=== PATIENT | female | born 1975 | race Caucasian/White ===

== ENCOUNTER → 2020-01-16 13:31 | Outpatient (CLI) | payer OTHER, SELFPAY ==
--- NOTE | ~2020-01-16 | MM_ITS ---
EXAMINATION: MM screening [facility] BI w eugenia HISTORY: Screening mammogram TECHNIQUE: Craniocaudal and mediolateral oblique 3-D tomosynthesis images were obtained and synthetic 2-D images were generated. CAD analysis was submitted and interpreted. COMPARISON: 08/06/2018, 06/16/2017, 03/16/2016, 01/13/2015 BREAST PARENCHYMAL COMPOSITION: The breasts are heterogeneously dense, which may obscure small masses . FINDINGS: There is no evidence of suspicious mass, calcification, or architectural distortion to sugg est malignancy in either breast. There has been no suspicious interval change. IMPRESSION: 1. No mammographic evidence of malignancy. 2. Recommend routine screening mammography in one year. BI-RADS Category 1: Negative Reviewed, dictated and finalized at location A.
== END ==
PROVIDERS: PCP Nurse Practitioner Family; Visit Provider Nurse Practitioner Obstetrics & Gynecology
DX: Z12.31 Encounter for screening mammogram for malignant neoplasm of breast (principal)
CPT/HCPCS: 77063; 77067

== ENCOUNTER → 2021-04-08 15:50 | Outpatient (CLI) | payer OTHER, SELFPAY ==
--- NOTE | ~2021-04-08 | MM_ITS ---
EXAMINATION: MM screening [facility] BI w eugenia HISTORY: Screening mammogram TECHNIQUE: Craniocaudal and mediolateral oblique 3-D tomosynthesis images were obtained and synthetic 2-D images were generated. CAD analysis was submitted and interpreted. COMPARISON: 01/16/2020 08/08/2018 BREAST PARENCHYMAL COMPOSITION: The breasts are heterogeneously dense, which may obscure small masses . FINDINGS: There is no evidence of suspicious mass, calcification, or architectural distortion to sugg est malignancy in either breast. There has been no suspicious interval change. IMPRESSION: 1. No mammographic evidence of malignancy. 2. Recommend routine screening mammography in one year. BI-RADS Category 1: Negative Reviewed, dictated and finalized at location A. [employer]
== END ==
PROVIDERS: Visit Provider Nurse Practitioner Obstetrics & Gynecology
DX: Z12.31 Encounter for screening mammogram for malignant neoplasm of breast (principal)
CPT/HCPCS: 77063; 77067

== ENCOUNTER 2021-12-06 01:12 | Day surgery (SDC) | payer OTHER, SELFPAY ==
[2021-11-24 13:39] VITALS: BMI 21.7
[2021-12-06 11:02] VITALS: BP 116/70; PULSE 80; RESP 18; TEMP 36.7; O2SAT 99
[2021-12-06] MEDS: LACTATED RINGERS 1,000 ML 150 ML IV CONT (11:05)
--- NOTE | 2021-12-06 11:12 | P.HP_ITS ---
H&P: HPI History of Present Illness Date/Time: 12/06/21 11:12 Chief Complaint: Positive Cologuard test Narrative: this is a 46-year-old white female patient presents for colonoscopy because of a positive screening Cologuard test. Patient's current weight appetite and bowel movements are normal. Patient denies abdominal pain. She has had no bleeding. Family history is noncontributory. Patient presents today for screening colonoscopy. Review of Systems Review of Systems: Review of systems noncontributory. [facility] Social History Social History Smoking status: Never smoker Alcohol intake: current Alcohol use details: occasionally Substance use type: does not use Living arrangements: with family Spiritual care concerns: No Meds Home Medications and Allergies Home Medications Medication Instructions Recorded Confirmed Type inulin 2.5 gram chewable tablet 2.5 g PO DAILY 11/24/21 11/24/21 History multivitamin with minerals-folic 1 tablet PO DAILY 11/24/21 11/24/21 History acid 0.4 mg tablet norgestimate 0.25 mg-ethinyl 1 tablet PO DAILY 11/24/21 11/24/21 History estradiol 35 mcg tablet (Layne) Allergies Allergy/AdvReac Type Severity Reaction Status Date / Time Penicillins Allergy Unknown Other Verified 12/06/21 11:00 Vital Signs Vital Signs - 24 hr 12/06/21 11:02 Temperature 98.1 F Pulse Rate 80 Respiratory Rate 18 Blood Pressure 116/70 Pulse Oximetry 99 Oxygen Delivery Room Air Exam Narrative: Physical exam reveals patient to be alert. Vital signs stable. HEENT exam is unremarkable. Patient is anicteric. Lungs are clear to auscultation and percussion. Heart is without murmur or extra sounds. Abdominal exam bowel sounds are present soft nontender with no organomegaly. Digital external rectal exam is normal. Assessment and Plan Assessment and plan (1) Positive colorectal cancer screening using Cologuard test: Code(s): R19.5 - Other fecal abnormalities Status: Acute Assessment and Plan: Patient found to have positive Cologuard test. Plan is for screening colonoscopy today because of this being positive.
--- NOTE | 2021-12-06 11:19 | WPDANESEPPF ---
Anes - Initial Pre Proc Eval Procedure: Operation Date: 12/06/21 11:30 Proposed Procedures p Colonoscopy - Grover Hernandez MD Date/Time: 12/06/21 11:19 Surgeon: Grover Hernandez MD Pre Op Diagnosis: positive cologaurd Patient Data Age: 46 Gender: F Height: 1.68 m Weight: 60.1 kg Last Vital Signs Temp 98.1 F 12/06/21 11:02 Pulse 80 12/06/21 11:02 Resp 18 12/06/21 11:02 BP 116/70 12/06/21 11:02 Pulse Ox 99 12/06/21 11:02 O2 Del Method Room Air 12/06/21 11:02 Allergies Allergy/AdvReac Type Severity Reaction Status Date / Time Penicillins Allergy Unknown Other Verified 12/06/21 11:00 Home Medications Medication Instructions Recorded Confirmed Type inulin 2.5 gram chewable tablet 2.5 g PO DAILY 11/24/21 11/24/21 History multivitamin with minerals-folic 1 tablet PO DAILY 11/24/21 11/24/21 History acid 0.4 mg tablet norgestimate 0.25 mg-ethinyl 1 tablet PO DAILY 11/24/21 11/24/21 History estradiol 35 mcg tablet (Layne) Patient hx anesthesia problems: none Family hx anesthesia problems: none Results Review: All pre-operative results and documents have been reviewed as part of the pre-operative evaluation. [facility] Social History Social History Smoking status: Never smoker Alcohol intake: current Alcohol use details: occasionally Substance use type: does not use Living arrangements: with family Spiritual care concerns: No Anes - Eval Final PreProcedure Day of Procedure 12/06/21 11:19 Patient weight: normal Heart: regular rate and rhythm Lungs: clear to auscultation Airway: Mallampati scale class II Neurological: alert and oriented Last oral intake: >/= 8 hours ASA classification: I Emergent: no Anesthetic plan: proceed Anesthesia type and monitoring: general GIVS and standard monitoring Results Review: All pre-operative results and documents have been reviewed as part of the pre-operative evaluation. Informed Consent: The patient's anesthetic plan and its attendant risks and benefits were discussed with the patient/family/POA. Questions were solicited and answers provided to the satisfaction of the patient/family/POA.
[2021-12-06 11:59] VITALS: BP 88/48; PULSE 62; RESP 17; O2SAT 99
[2021-12-06 12:09] VITALS: BP 96/56; PULSE 70; RESP 17; O2SAT 99
[2021-12-06 12:17] VITALS: BP 109/69; PULSE 73; RESP 17; O2SAT 99
== END 2021-12-06 12:30 | disposition home or self-care (01) ==
PROVIDERS: PCP Nurse Practitioner Obstetrics & Gynecology; Visit Provider Internal Medicine Gastroenterology
PROC: 0DJD8ZZ Inspection of Lower Intestinal Tract, Via Natural or Artificial Opening Endoscopic (ICD-10-PCS; CPT 45378; principal; 2021-12-06 11:30)
DX: R19.5 Other fecal abnormalities (principal); K64.8 Other hemorrhoids
CPT/HCPCS: 45378; J2704; J7120

== ENCOUNTER 2022-10-10 17:02 | Emergency (ER) | payer OTHER, SELFPAY ==
--- NOTE | 2022-10-10 17:07 | ED.EXTPRO ---
HPI - Extremity Problem General Chief complaint: Extremity Problem,Nontraumatic Stated complaint: top of left foot Time Seen by Provider: 10/10/22 17:09 Source: patient and RN notes reviewed Mode of arrival: ambulatory Limitations: no limitations History of Present Illness HPI Narrative: 47-year-old female presents with concern for pain to the top of her left foot. She denies injury. She reports symptoms started on Monday without injury or trauma. She reports it is tender to touch. She denies redness, warmth, bruising. She reports she has been taking ibuprofen occasionally that helps MD Complaint: extremity pain Related Data Home Medications Medication Instructions Recorded Confirmed inulin 2.5 gram chewable tablet 2.5 g PO DAILY 11/24/21 11/24/21 multivitamin with minerals-folic 1 tablet PO DAILY 11/24/21 11/24/21 acid 0.4 mg tablet norgestimate 0.25 mg-ethinyl 1 tablet PO DAILY 11/24/21 11/24/21 estradiol 35 mcg tablet (Layne) Allergies Allergy/AdvReac Type Severity Reaction Status Date / Time Penicillins Allergy Unknown Other Verified 12/06/21 11:00 Review of Systems Review of Systems: CONSTITUTIONAL: Denies malaise, chills, sweats, or fever. CARDIOVASCULAR: Denies chest pain, palpitations, or edema. RESPIRATORY: Denies cough or dyspnea. SKIN: Denies rash or itching, bruising, redness, swelling. MUSCULOSKELETAL: Reports left dorsal foot pain NEUROLOGIC: Denies numbness, weakness All systems reviewed & are unremarkable except as noted in HPI and below PMFSH Social History Social History Smoking status: Never smoker Alcohol intake: current Alcohol use details: occasionally Substance use type: does not use Living arrangements: with family Spiritual care concerns: No Comments At time of signature, agree with nursing past medical, surgical, social and family history. There is no relevant family history pertinent to the presenting complaint Exam Narrative: GENERAL: Well-appearing, well-nourished, and in no acute distress. HEAD: Normocephalic, atraumatic. EYES: PERRLA, conjunctivae clear NECK: Supple. CHEST: Speaks in full sentences. No respiratory distress. HEART: Regular rate and rhythm. Normal and equal peripheral pulses. EXTREMITIES: Left foot has normal strength and sensation, normal range of motion. No ecchymosis. Small raised tender area on the dorsal left foot without erythema, warmth, induration, open skin. 5/5 strength with ankle in digit flexion and extension. Normal sensation with sensitivity to light touch and pain. No open wounds, no skin tenting, no devitalized tissue or atrophy, no trophic changes, no obvious deformity, alignment normal, nearby joints and structures intact. Distal pulses palpable and equal bilaterally, skin warm, dry, pink. Capillary refill less than 3 seconds. SKIN: Warm, dry, no rash. NEURO: Alert and oriented x3. PSYCH: Normal mood and affect Course Course Emergency Course: Patient is aware of diagnosis, understands and agrees to treatment plan. Anticipatory guidance given. Patient agrees to follow-up as directed and is aware of reasons to seek care at the emergency department. Portions of this record may have been created with voice recognition software Level of Care: Express Care Visit Vital Signs Vital signs: Reviewed. Critical Care Time Critical Care Time Critical Care Time: No Discharge Plan Discharge Clinical Impression: Tendinitis of left foot Patient Disposition: Home, Self-Care Condition: Stable Instructions: Tendinitis (ED) Additional Instructions: Avoid activities that cause pain until the pain subsides. Ice to the area 20-30 minutes 4-6 times a day Elastic wrap/orthopedic shoe as directed for comfort for the next 5-7 days Tylenol for lesser pain Ibuprofen regularly for the next 2-3 days for the inflammation Follow up with your primary care provider if the condition is not improving within 1 week. If
[2022-10-10 17:11] VITALS: BP 113/71; PULSE 78; RESP 16; TEMP 36.8; O2SAT 100
== END 2022-10-10 17:26 | disposition home or self-care (01) ==
PROVIDERS: Emergency Provider Nurse Practitioner; PCP Nurse Practitioner Family
DX: M77.8 Other enthesopathies, not elsewhere classified (principal)
CPT/HCPCS: 99212; G0463

== ENCOUNTER 2023-11-02 14:35 | Emergency (ER) | payer OTHER, SELFPAY ==
[2023-11-02 14:46] VITALS: BP 120/86; PULSE 77; RESP 16; TEMP 36.9; O2SAT 100
--- NOTE | 2023-11-02 15:52 | ED.FEMALEGU ---
HPI - Female Genitourinary General Chief complaint: Urogenital-Female Stated complaint: Urinary Problem Time Seen by Provider: 11/02/23 15:20 Source: patient, RN notes reviewed and old records reviewed Mode of arrival: ambulatory Limitations: no limitations History of Present Illness HPI Narrative: 48 year old female who presents to express care with UTI symptoms since Monday, suprapubic pressure, burning at end of stream of urine, frequency, and decreased volume. Patient reports that she has noted some blood in the urine, denies any CV tenderness. Patient reports no concern for STD exposure, denies any vaginal discharge or any itching. Patient reports no fevers, chills, or sweats, denies any fevers, nausea or vomiting or diarrhea. MD elicited complaint: UTI Onset (ago): day(s) (3-4 days) Location of symptoms: suprapubic and urethra Severity scale (1-10): 4 Quality of pain: burning and aching Vaginal discharge: none Vaginal bleeding: none Treatment prior to arrival: other (increased oral fluids of water) Related Data Home Medications Medication Instructions Recorded Confirmed multivitamin with minerals-folic 1 tablet PO DAILY 11/24/21 11/02/23 acid 0.4 mg tablet norgestimate 0.25 mg-ethinyl 1 tablet PO DAILY 11/24/21 11/02/23 estradiol 35 mcg tablet (Layne) Allergies Allergy/AdvReac Type Severity Reaction Status Date / Time Penicillins Allergy Mild Rash Verified 11/02/23 15:11 Review of Systems Review of Systems: CONSTITUTIONAL: Denies fever, chills, or sweats. CARDIOVASCULAR: Denies chest pain, palpitations, or edema. RESPIRATORY: Denies cough or dyspnea. GASTROINTESTINAL:reports suprapubic abdominal pain,no nausea, vomiting, or diarrhea. GENITOURINARY: Reports dysuria, frequency, urgency. Denies flank pain positive for visible hematuria. SKIN: Denies rash or itching. MUSCULOSKELETAL: Denies back pain or myalgia. Denies CVA tenderness NEUROLOGIC: Denies headache All systems reviewed & are unremarkable except as noted in HPI and below PMFSH Social History Social History Smoking status: Never smoker Alcohol intake: current Alcohol use details: occasionally Substance use type: does not use Living arrangements: with family Spiritual care concerns: No Comments At time of signature, agree with nursing past medical, surgical, social and family history. There is no relevant family history pertinent to the presenting complaint Exam Narrative: GENERAL: Well-appearing, well-nourished, and in no acute distress. HEAD: Normocephalic, atraumatic. NECK: Supple.no lymphadenopathy CHEST: Clear to auscultation. No respiratory distress.SAO2 100% on room air HEART: Regular rate and rhythm. No murmur heard. Normal peripheral pulses. ABDOMEN: Soft, nontender, nondistended, normal active bowel sounds. No CVA tenderness positive for dysuria, some visible hematuria, frequency,less volume voided EXTREMITIES: Normal range of motion. No edema. SKIN: Warm, dry, no rash. NEURO: No focal deficits. Alert and oriented x3. Course Course Emergency Course: Patient is aware of diagnosis, understands and agrees to treatment plan.? Anticipatory guidance given.? Patient agrees to follow-up as directed and is aware of reasons to seek care at the emergency department. Portions of this record may have been created with voice recognition software Level of Care: Express Care Visit Vital Signs Vital signs: Vital Signs Temperature 36.9 C 11/02/23 14:46 Pulse Rate 77 11/02/23 14:46 Respiratory Rate 16 11/02/23 14:46 Blood Pressure 120/86 11/02/23 14:46 Pulse Oximetry 100 11/02/23 14:46 Oxygen Delivery Room Air 11/02/23 14:46 Temperature 36.9 C 11/02/23 14:46 Pulse Rate 77 11/02/23 14:46 Respiratory Rate 16 11/02/23 14:46 Blood Pressure 120/86 11/02/23 14:46 Pulse Oximetry 100 11/02/23 14:46 Oxygen Delivery Room Air 11/02/23 14:46 reviewed MDM - Female Genitourinary
== END 2023-11-02 16:00 | disposition home or self-care (01) ==
PROVIDERS: Emergency Provider Registered Nurse
DX: N39.0 Urinary tract infection, site not specified (principal); B96.20 Unspecified Escherichia coli [E. coli] as the cause of diseases classified elsewhere
CPT/HCPCS: 81003; 87077; 87086; 87088; 87186; 99213; G0463

== ENCOUNTER 2023-11-21 11:32 | Outpatient (CLI) | payer OTHER, SELFPAY ==
--- NOTE | ~2023-11-21 | MM_ITS ---
EXAMINATION: MM screening [facility] BI w eugenia HISTORY: Screening mammogram TECHNIQUE: Craniocaudal and mediolateral oblique 3-D tomosynthesis images were obtained and synthetic 2-D images were generated. CAD analysis was submitted and interpreted. COMPARISON: 04/08/2021, 01/16/2020 BREAST PARENCHYMAL COMPOSITION:Not Dense. There are scattered areas of fibroglandular density. FINDINGS: No suspicious mass, calcification, or architectural distortion are identified in either dez ast to suggest malignancy. There has been no suspicious interval change. IMPRESSION: No mammographic evidence of malignancy. Recommend routine screening mammography in one year. BI-RADS Category 1: Negative Reviewed, dictated and finalized at location .
== END 2023-11-21 11:33 ==
LOC: MICIMG 11:33
PROVIDERS: PCP Nurse Practitioner Obstetrics & Gynecology; Visit Provider Nurse Practitioner Obstetrics & Gynecology
DX: Z12.31 Encounter for screening mammogram for malignant neoplasm of breast (principal)
CPT/HCPCS: 77063; 77067

== ENCOUNTER 2024-12-03 14:52 | Outpatient (CLI) | payer OTHER, SELFPAY ==
--- NOTE | ~2024-12-03 | MM_ITS ---
EXAMINATION: MM screening [facility] w eugenia HISTORY: Screening TECHNIQUE: Craniocaudal and mediolateral oblique 3-D tomosynthesis images were obtained and synthetic 2-D images were generated. CAD analysis was submitted and interpreted. COMPARISON: Comparison to multiple prior studies sequentially, with oldest reviewed study dated 02/20. BREAST PARENCHYMAL COMPOSITION: Dense: The breasts are heterogeneously dense, which may obscure small masses FINDINGS: There is no evidence of suspicious mass, calcification, or architectural distortion to sugg est malignancy in either breast. There has been no suspicious interval change. IMPRESSION: 1. No mammographic evidence of malignancy. 2. Recommend routine screening mammography in one year. BI-RADS Category 1: Negative Reviewed, dictated and finalized at location B.
== END 2024-12-03 14:53 | disposition home or self-care (01) ==
PROVIDERS: PCP Nurse Practitioner; Visit Provider Nurse Practitioner
DX: Z12.31 Encounter for screening mammogram for malignant neoplasm of breast (principal)
CPT/HCPCS: 77063; 77067

== ENCOUNTER 2024-12-31 23:27 | Emergency (ER) | payer OTHER, SELFPAY ==
--- NOTE | ~2024-12-31 | CT_ITS ---
CLINICAL INDICATION: Left flank pain COMPARISON: None. TECHNIQUE: Multiple contiguous axial images of the abdomen and pelvis were performed without the admi nistration of intravenous contrast The dose-length product (DLP) was 283.79 mGy-cm. Automated exposure control and iterative reconstruction technique were employed. FINDINGS/OBSERVATIONS: Visualized lower thorax: The bilateral lung bases are clear. The heart is of normal size, without pericardial effusion. Small hiatal hernia is present. Liver: The liver demonstrates homogeneous attenuation and is not enlarged. Gallbladder and biliary system: The gallbladder is only minimally distended, and otherwise unremarkable. Pancreas: Limited evaluation of the pancreas secondary to the lack of intravenous contrast. Spleen: The spleen demonstrates homogeneous attenuation and is not enlarged. Kidneys: Global enlargement of the left kidney with left-sided hydroureteronephrosis extending to the distal left ureter where a 4 mm calculus is present. No left-sided hydroureteronephrosis. No left-sided renal calculi. Adrenal glands: Unremarkable. Gastrointestinal tract: Colonic diverticulosis without surrounding inflammatory change. Appendix: The air-filled appendix is of normal caliber (axial series, images 146 through 163) Vasculature: Unremarkable. Lymph nodes: Limited evaluation without intravenous contrast Pelvic structures: The bladder is decompressed, limiting its evaluation. The uterus is anteverted and anteflexed, and otherwise unremarkable. Body wall and musculoskeletal: No significant degenerative disease within the lower thoracic or lumbosacral spine. IMPRESSION: Left-sided hydroureteronephrosis secondary to a 4 mm calculus in the distal left ureter Reviewed, dictated and finalized at location A. IMPRESSION: Left-sided hydroureteronephrosis secondary to a 4 mm calculus in the distal lef t ureter
--- OUTSIDE RECORDS SUMMARY | 2024-12-31 23:29 | XMS_ITS | Clinical Summary ---
Author Organization [facility] Address [address] [place] [address] Care Team Providers Care Band Machine Operator Name Role Phone Mely Leiva MD Primary Care Provider [phone] Source Comments [facility],non-owned Affiliates and Associated Physician Practices is amultiple site organization consisting of ambulatory clinics and hospital sitesin [place], [place], [place] and [place]. This disclosure is being madepursuant to the Care Everywhere program and may not contain all information available regarding this patient. Last updated 18.[facility] Allergies Active Allergy Reactions Criticality Noted Date Comments Penicillins 06/15/2017 Medications * Be aware that medications may not be up to date on this document. Alwaysverify current medications with the patient. No known medications Active Problems No known active problems Social History Tobacco Use Types Packs/Day Years Used Date Smoking Tobacco: Never Smokeless Tobacco: Never Comments No Sex and Gender Information Value Date Recorded Sex Assigned at Not on file Legal Sex Female 10:28 AM [employer] Gender Identity Not on file Sexual Orientation Not on file Last Filed Vital Signs Vital Sign Reading Time Taken Comments Blood Pressure 112/70 07/07/2019 12:19 PM [employer] Pulse 99 07/07/2019 12:19 PM [employer] Temperature 38 C (100.4 F) 07/07/2019 12:19 PM [employer] Respiratory Rate 18 07/07/2019 12:19 PM [employer] Oxygen Saturation 98% 07/07/2019 12:19 PM [employer] Inhaled Oxygen Concentration - - Weight 59 kg (130 lb) 07/07/2019 12:19 PM [employer] Height 167.6 cm (5' 6) 07/07/2019 12:19 PM [employer] Body Mass Index 20.98 07/07/2019 12:19 PM [employer] Plan of Treatment Health Maintenance Due Date Last Done Comments COLOGUARD (AGES 45-75) - COL ON CA SCREENING 1974 COLON MONITORING 1974 COLONOSCOPY - COLON CA SCREENING 1974 CT COLONOGRAPHY - COLON CA SCREENING 1974 Colorectal Cancer Screening 1974 FIT - COLON CA SCREENING 1974 FLEX SIG - COLON CA SCREENING 1974 LIPID TESTING 1974 MAMMOGRAM 1974 HIV SCREENING 1989 HEPATITIS C SCREENING 08/11/1992 DTAP/TDAP/TD VACCINES (1 - Tdap) 1993 HEPATITIS B VACCINE (1 of 3 - 19+ 3-dose series) 1993 COVID-19 VACCINE (1 - 2023-2 5 season) 2024 DEPRESSION SCREENING 05/22/2024 PNEUMOCOCCAL VACCINE 50+ (1 of 1 - PCV) 2024 ZOSTER VACCINE (1 of 2) 2024 INFLUENZA VACCINE (#1) 2025 9, 03/12/2018 HIB VACCINE Aged Out No longer eligi ble based on patient's age to complete this topic HPV VACCINE Aged Out No longer eligi ble based on patient's age to complete this topic MENINGOCOCCAL (Group B) VACCINE SHARED DECISION-MAKING Aged Out No longer eligible based on patient's age to complete this topic MENINGOCOCCAL GROUPS A/C/Y/W VACCINE Aged Out No longer eligible b ased on patient's age to complete this topic Care Teams Band Machine Operator Relationship Specialty Start Date End Date Mely Leiva MD [address] [place] [address] [phone] PCP - General Family Medicine 06/15/17
--- NOTE | 2024-12-31 23:33 | ED_ITS ---
HPI - Abdominal Pain General Chief Complaint: Urogenital-Female Stated Complaint: L side flank pain Time Seen by Provider: 12/31/24 23:31 Source: patient and family Mode of arrival: ambulatory Limitations: no limitations History of Present Illness HPI narrative: patient is a 49-year-old female with left flank pain and left frontal groin pain and suprapubic pain for the past day. Specifically it started a few hours ago significantly. She has decreased urination over the past few days. Associated nausea. MD elicited complaint: abdominal pain ( Left lower) and flank pain ( left) Pertinent past history: none Onset (ago): hour(s) ( 2-3) Pain Consistency: constant Location: LLQ, L flank, pelvis ( left) and groin ( left) Severity: severe Pain scale (0-10): 9 Quality: stabbing and sharp Radiation: LLQ, suprapubic and L flank Migration to: no migration Exacerbating factors: movement Relieving factors: nothing Context: confirms other ( patient having left lower quadrant pain and suprapubic pain with left groin pain radiating from the left flank over the past 2-3 hours) Associated symptoms: nausea Treatments prior to arrival: other ( none) Related Data Home Medications ?Medication ?Instructions ?Recorded ?Confirmed ?Last Taken ?Type multivitamin with minerals-folic 1 tablet PO DAILY 11/24/21 11/02/23 12/05/21 History acid 0.4 mg tablet norgestimate 0.25 mg-ethinyl 1 tablet PO DAILY 11/24/21 11/02/23 12/05/21 History estradiol 0.035 mg tablet (Layne) Allergies Allergy/AdvReac Type Severity Reaction Status Date / Time Penicillins Allergy Mild Rash Verified 12/31/24 23:30 Review of Systems 2 Review of Systems: All systems reviewed & are unremarkable except as noted in HPI and below Constitutional: Constitutional: Reports no additional constitutional complaints Eyes: Eyes: Reports no additional eye complaints ENT: Reports system reviewed and no additional complaints, except as documented Cardiovascular: Cardiovascular: Reports no additional cardiovascular complaints Respiratory: Respiratory: Reports no additional respiratory complaints Gastrointestinal: Gastrointestinal: Reports no additional gastrointestinal complaints Genitourinary: Genitourinary: Reports no additional female genitourinary complaints Musculoskeletal: Musculoskeletal: Reports no additional musculoskeletal complaints Integumentary/Breasts: Skin/Breast: Reports system reviewed and no additional complaints, except as docu Neurologic: Reports system reviewed and no additional complaints, except as documented Psychiatric: Psychiatric: Reports no additional psychiatric complaints Endocrine: Endocrine: Reports no additional endocrine complaints Hematologic/Lymphatic: Hematologic/Lymphatic: Reports no additional hematologic/lymphatic complaints Allergic/Immunologic: Allergic/Immunologic: Reports no additional allergic/immunologic complaints PMFSH Social History Social History Smoking status: Never smoker Alcohol intake: current Alcohol use details: occasionally Substance use type: does not use Living arrangements: with family Spiritual care concerns: No Exam 2 Const: General: healthy appearing Nutritional Appearance: well nourished Orientation/consciousness: patient oriented x3 Limitations: no limitations Other: Acute distress due to pain HENMT: Head: normal to inspection Ears: external ears normal F pamela/Nose/Sinus: Normal external nose present Eyes: Conjunctivae: conjunctivae normal Pupils: Equal, round and reactive pupils present EOM: EOMs intact bilaterally Neck: Neck: normal visual inspection Chest: Chest palpation & inspection: normal inspection of the chest Resp: Effort & Inspection: normal respiratory effort and not labored A uscultation: clear to auscultation bilaterally and no crackles Cardio: Rate: regular rate Rhythm: regular rhythm Heart sounds: no murmurs GI: Inspection: non-distended GI Palp: Yes Soft to palpation, Yes Tenderness to palpation present (GI) ( left lower quadrant and suprapubic region), Yes Guarding due to palpation present (GI), No Rigid due to palpation, No Hernia present, No Palpable mass present and Yes Rebound tenderness present Auscultation: Hypoactive bowel sounds present : General: No bladder normal to palpation ( tenderness suprapubic) Back/Spine/Pelvis: Back: No no CVA tenderness and CVA tenderness ( left) Skin: General skin exam: normal color Rashes: no rashes Wounds: no wounds Neuro: General: patient oriented x3, moves all extremities and no meningeal signs Extrem: General: normal to inspection, no clubbing, cyanosis or edema and no pedal edema Psych: Mental Status: mental status grossly normal Affect: normal affect Attitude: cooperative MDM - Abdominal Pain MDM Narrative Medical decision making narrative: patient is a 49-year-old female with left flank pain down to the left lower quadrant and groin over the past 2-3 hours. We will do a abdominal pain/ kidney stone workup at this time. Toradol IM. Lab Data Attestation: I reviewed the patient's lab results. 12/31/24 23:51 12/31/24 23:51 Labs: Lab Results 12/31/24 12/31/24 Range/Units 00:30 23:51 WBC 7.0 (4.8-10.8) K/mm3 RBC 4.21 (4.20-5.40) M/mm3 Hgb 12.3 (12.0-15.0) g/dL Hct 37.1 (35.0-49.0) % MCV 88.1 (78.0-102.0) fL MCH 29.2 (27.0-31.0) pg MCHC 33.2 (32-36) g/dL RDW 12.1 (11.6-14.4) % Plt Count 320 (150-420) K/mm3 MPV 9.5 (9.2-11.8) fl Immature Gran % (Auto) 0.1 H (0.0-0.0) % Neut % (Auto) 45.9 L (50.0-70.0) % Lymph % (Auto) 42.7 H (18.0-42.0) % Island % (Auto) 8.3 (2.0-11.0) % Eos % (Auto) 2.6 (1.0-6.0) % Baso % (Auto) 0.4 (0.0-1.0) % Lymph # (Auto) 2.99 (1.10-4.50) K/mm3 [place] # (Auto) 0.58 (0.10-0.90) K/mm3 Eos # (Auto) 0.18 (0.02-0.50) K/mm3 Baso # (Auto) 0.03 (0.00-0.10) K/mm3 Abs Immat Gran (auto) 0.01 H (0.00-0.00) K/mm3 Absolute Neuts (auto) 3.21 (1.70-7.20) K/mm3 Absolute Nucleated RBC 0.00 (0.00-0.00) K/mm3 Nucleated RBC % 0.0 (0-0.0) % PT 9.8 (9.50-12.1) Seconds INR 0.9 APTT 21.5 L (23.9-30.70) Sec Sodium 138 (137-145) mmol/L Potassium 3.3 L (3.4-5.0) mmol/L Chloride 109 H (98-107) mmol/L Carbon Dioxide 20 L (22-30) mmol/L Anion Gap 9 (4-12) mmol/L BUN 10 (7-17) mg/dL Creatinine 0.89 (0.7-1.0) mg/dL Estim Creat Clear Calc Not Reportable Estimated GFR > 60 (59 - ) Glucose 118 H (65-110) mg/dL Calculated Osmolality 286 (285-295) mOsm/kg Calcium 9.4 (8.4-10.2) mg/dL Total Bilirubin 0.7 (0.2-1.3) mg/dL AST 27 (14-36) U/L ALT 18 (6-35) U/L Alkaline Phosphatase 56 (38-126) U/L Total Protein 7.6 (6.3-8.2) g/dL Albumin 4.5 (3.5-5.1) g/dL Lipase 103 (23-300) U/L Urine Color Yellow (Yellow) Urine Appearance Sl cloudy A (Clear) Urine pH 6.0 (5.0-8.0) Ur Specific [place] 1.025 H (1.010-1.020) Urine Protein Trace H (Negative) Urine Glucose (UA) Negative (Negative) Urine Ketones 2+ H (Negative) Ur Blood (Man) 3+ H (Negative) Urine Nitrate Negative (Negative) Urine Bilirubin Negative (Negative) Urine Urobilinogen 0.2 (0.2-1.0) mg/dL Leukocyte Esterase Rfl Negative (Negative) JAVIER/UL Urine RBC 21-50 H (0-2) /hpf Urine WBC 0-3 (0-3) /hpf Ur Squamous Epith Cells Few (Few) /hpf Urine Bacteria 1+ H (None) /hpf Urine Mucus Moderate H /lpf Imaging Data Attestation: I personally reviewed and interpreted this imaging study as follows: Radiologist's impression: ITS Impressions Abdomen/Pelvis CT 01/01/25 00:03 IMPRESSION: Left-sided hydroureteronephrosis secondary to a 4 mm calculus in the distal left ureter ADDENDUM: 01/01/25 0020 CLINICAL INDICATION: Left flank pain COMPARISON: None. TECHNIQUE: Multiple contiguous axial images of the abdomen and pelvis were performed without the administration of intravenous contrast The dose-length product (DLP) was 283.79 mGy-cm. Automated exposure control and iterative reconstruction technique were employed. FINDINGS/OBSERVATIONS: Visualized lower thorax: The bilateral lung bases are clear. The heart is of normal size, without pericardial effusion. Small hiatal hernia is present. Liver: The liver demonstrates homogeneous attenuation and is not enlarged. Gallbladder and biliary system: The gallbladder is only minimally distended, and otherwise unremarkable. Pancreas: Limited evaluation of the pancreas secondary to the lack of intravenous contrast. Spleen: The spleen demonstrates homogeneous attenuation and is not enlarged. Kidneys: Global enlargement of the left kidney with left-sided hydroureteronephrosis extending to the distal left ureter where a 4 mm calculus is present. No right-sided hydroureteronephrosis. No right-sided renal calculi. Adrenal glands: Unremarkable. Gastrointestinal tract: Colonic diverticulosis without surrounding inflammatory change. Appendix: The air-filled appendix is of normal caliber (axial series, images 146 through 163) Vasculature: Unremarkable. Lymph nodes: Limited evaluation without intravenous contrast Pelvic structures: The bladder is decompressed, limiting its evaluation. The uterus is anteverted and anteflexed, and otherwise unremarkable. Body wall and musculoskeletal: No significant degenerative disease within the lower thoracic or lumbosacral spine. IMPRESSION: Left-sided hydroureteronephrosis secondary to a 4 mm calculus in the distal left ureter Discharge Plan Discharge Clinical Impression: Calculus of distal left ureter Patient Disposition: Home Condition: Stable Instructions: Antibiotic Form, Kidney Stones (ED) Patient Language: Belarusian Prescriptions: New ciprofloxacin HCl [Cipro] 500 mg tablet 500 mg PO BID 7 Days Qty: 14 0RF tamsulosin [Flomax] 0.4 mg capsule 0.4 mg PO DAILY Qty: 30 0RF methylprednisolone [Medrol] 4 mg tablet 4 mg PO TID 2 Days Qty: 6 0RF hydrocodone-acetaminophen 5-325 mg tablet 1 tablet PO Q8H PRN (Reason: pain) Qty: 20 0RF No Action norgestimate-ethinyl estradiol [Layne] 0.25-35 mg-mcg tablet 1 tablet PO DAILY multivit with min-folic acid [Adult One Daily Multivitamin] 0.4 mg Tablet 1 tablet PO DAILY Follow-up/Referrals: UNKNOWN,DOCTOR [Primary Care Provider] - Time of Disposition: 01:10
[2024-12-31] MEDS: KETOROLAC (*BKC) 60 MG/2 ML VIAL IM (23:43)
[2024-12-31 23:57] LABS: Hematocrit 37.1 % (35.0-49.0); Hemoglobin 12.3 g/dL (12.0-15.0); Immature Granulocyte Percent A 0.1 % (0.0-0.0); Lymphocytes Absolute Auto 2.99 K/mm3 (1.10-4.50); Mean Corpuscular HGB Conc 33.2 g/dL (32-36); Mean Corpuscular Hemoglobin 29.2 pg (27.0-31.0); Mean Corpuscular Volume 88.1 fL (78.0-102.0); Nucleated Red Blood Cells Absolute Auto 0.00 K/mm3 (0.00-0.00); Nucleated Red Blood Cells Perc 0.0 % (0-0.0); Platelet Count Result 320 K/mm3 (150-420); Red Blood Count 4.21 M/mm3 (4.20-5.40); White Blood Count 7.0 K/mm3 (4.8-10.8)
[2025-01-01 00:09] LABS: Alanine Aminotransferase 18 U/L (6-35); Albumin Level 4.5 g/dL (3.5-5.1); Alkaline Phosphatase 56 U/L (38-126); Anion Gap 9 mmol/L (4-12); Aspartate Amino Transferase 27 U/L (14-36); Bilirubin,Total 0.7 mg/dL (0.2-1.3); Blood Urea Nitrogen 10 mg/dL (7-17); Calcium 9.4 mg/dL (8.4-10.2); Carbon Dioxide 20 mmol/L (22-30); Chloride 109 mmol/L (98-107); Estimated Glomerular Filt Rate > 60; Glucose 118 mg/dL (65-110); Osmolality Calculated 286 mOsm/kg (285-295); Potassium 3.3 mmol/L (3.4-5.0); Sodium 138 mmol/L (137-145); Total Protein 7.6 g/dL (6.3-8.2)
[2025-01-01 00:11] LABS: INR 0.9; Partial Thromboplastin Time 21.5 Sec (23.9-30.70); Prothrombin Time 9.8 Seconds (9.50-12.1)
[2025-01-01 00:13] LABS: Lipase 103 U/L (23-300)
[2025-01-01] MEDS: TAMSULOSIN HCL 0.4 MG CAPSULE PO (00:24)
[2025-01-01 00:37] LABS: Add Urine Microscopic? YES; Glucose Urine UA Negative (Negative); Leukocyte Esterase Ur Negative LEU/UL (Negative); Nitrate Urine Negative (Negative); Specific Grav Ur 1.025 (1.010-1.020)
[2025-01-01 00:46] LABS: Appearance Urine Sl Cloudy (Clear)
[2025-01-01] MEDS: CIPROFLOXACIN 500 MG TAB PO (01:14)
[2025-01-01] MEDS: POTASSIUM CHLORIDE 20 MEQ ER TABLET PO (01:18)
[2025-01-01 01:32] VITALS: BP 125/84; PULSE 75; RESP 16; O2SAT 100
== END 2025-01-01 01:35 | disposition home or self-care (01) ==
PROVIDERS: Emergency Provider Emergency Medicine
DX: N20.1 Calculus of ureter (principal)
CPT/HCPCS: 36415; 74176; 80053; 81001; 83690; 85025; 85610; 85730; 96372; 99284; A9270; J1885; J7512